=== PATIENT | female | born 1995 | race African-American/Black ===

== ENCOUNTER 2018-07-02 18:42 | Emergency (ER) | payer OTHER ==
[2018-07-02 19:25] VITALS: BP 116/68; PULSE 97; RESP 20; TEMP 98
--- NOTE | 2018-07-02 19:53 | ED ---
ENT HPI - General Chief complaint: ENT Stated complaint: sore throat Source: patient Mode of arrival: ambulatory Limitations: no limitations - Related Data Previous Rx's Medication Instructions Recorded Amoxicillin 500 mg PO Q12HR 10 Days #20 cap 07/02/18 Allergies Allergy/AdvReac Type Severity Reaction Status Date / Time No Known Allergies Allergy Verified 07/02/18 20:03 Review of Systems ROS Statement: Those systems with pertinent positive or pertinent negative responses have been documented in the HPI. ROS Other: All systems not noted in ROS Statement are negative. Past Medical History Past Medical History: No Reported History History of Any Multi-Drug Resistant Organisms: None Reported Past Surgical History: No Surgical Hx Reported Past Psychological History: No Psychological Hx Reported Smoking Status: Current every day smoker Past Alcohol Use History: None Reported Past Drug Use History: None Reported General Exam - General Exam Comments Initial Comments: General: The patient is awake and alert, in no distress, and does not appear acutely ill. Eye: Pupils are equal, round and reactive to light, extra-ocular movements are intact. No nystagmus. There is normal conjunctiva bilaterally. No signs of icterus. Ears, nose, mouth and throat: There are moist mucous membranes and no oral lesions. Neck: The neck is supple, there is no tenderness or JVD. Cardiovascular: There is a regular rate and rhythm. No murmur, rub or gallop is appreciated. Respiratory: Lungs are clear to auscultation, respirations are non-labored, breath sounds are equal. No wheezes, stridor, rales, or rhonchi. Gastrointestinal: [Soft, non-distended, non-tender abdomen without masses or organomegaly noted. There is no rebound or guarding present. No CVA tenderness. Bowel sounds are unremarkable.] Musculoskeletal: Normal ROM, no tenderness. Strength 5/5. Sensation intact. Pulses equal bilaterally 2+. Neurological: A&O x 3. CN II-XII intact, There are no obvious motor or sensory deficits. Coordination appears grossly intact. Speech is normal. Skin: Skin is warm and dry and no rashes or lesions are noted. Psychiatric: Cooperative, appropriate mood & affect, normal judgment. Limitations: no limitations Course Vital Signs 07/02/18 19:20 Temperature 98.0 F Pulse Rate 97 Respiratory 20 Rate Blood Pressure 116/68 O2 Sat by Pulse 100 Oximetry Medical Decision Making - Lab Data Lab Results 07/02/18 Range/Units 19:25 Group A Strep Rapid Positive A (Negative) Disposition Clinical Impression: Strep pharyngitis Disposition: HOME SELF-CARE Condition: Good Instructions: Strep Throat (ED) Additional Instructions: Please use medication as discussed. Please follow-up with family doctor in the next 2 days. Please return to emergency room if the symptoms increase or worsen or for any other concerns. Prescriptions: Amoxicillin 500 mg PO Q12HR 10 Days #20 cap Is patient prescribed a controlled substance at d/c from ED?: No Referrals: None,Stated [Primary Care Provider] - 1-2 days [facility] [NON-STAFF] - 1-2 days Time of Disposition: 19:52
== END 2018-07-02 20:14 | disposition home or self-care (01) ==
LOC: EC 18:42
DX: J02.0 Streptococcal pharyngitis (principal); F17.200 Nicotine dependence, unspecified, uncomplicated
CPT/HCPCS: 87430; 99283

== ENCOUNTER 2019-09-23 12:31 | Emergency (ER) | payer OTHER ==
[2019-09-23 13:18] VITALS: BP 93/59; PULSE 96; RESP 18; TEMP 98.8
--- NOTE | 2019-09-23 13:46 | ED ---
General Adult HPI - General Chief complaint: Skin/Abscess/Foreign Body Stated complaint: bug bites Time Seen by Provider: 09/23/19 13:18 Source: patient, RN notes reviewed Mode of arrival: ambulatory Limitations: no limitations - History of Present Illness Initial comments: 24-year-old female presents to the emergency department for a chief complaint of rash. She states she had a family member that stayed with them and had ringworm. Mother states that for the past couple weeks she has had spots on her legs and back. States her legs disappeared but she still has about 2 spots on her back. States she is concerned this is ringworm.Patient has no other complaints at this time including shortness of breath, chest pain, abdominal pain, nausea or vomiting, headache, or visual changes. - Related Data Previous Rx's Medication Instructions Recorded Amoxicillin 500 mg PO Q12HR 10 Days #20 cap 07/02/18 Clotrimazole Cream [Lotrimin Cream] 1 applic TOPICAL BID #20 gm 09/23/19 Penicillin V Potassium [Pen Vee K] 500 mg PO Q6H 10 Days #40 tablet 09/23/19 Allergies Allergy/AdvReac Type Severity Reaction Status Date / Time No Known Allergies Allergy Verified 09/23/19 13:19 Review of Systems ROS Statement: Those systems with pertinent positive or pertinent negative responses have been documented in the HPI. ROS Other: All systems not noted in ROS Statement are negative. Past Medical History Past Medical History: No Reported History History of Any Multi-Drug Resistant Organisms: None Reported Past Surgical History: No Surgical Hx Reported Past Psychological History: No Psychological Hx Reported Smoking Status: Current every day smoker Past Alcohol Use History: None Reported Past Drug Use History: None Reported General Exam Limitations: no limitations General appearance: alert, in no apparent distress Head exam: Present: atraumatic, normocephalic, normal inspection Eye exam: Present: normal appearance, PERRL, EOMI. Absent: scleral icterus, conjunctival injection, periorbital swelling ENT exam: Present: normal exam, mucous membranes moist Neck exam: Present: normal inspection. Absent: tenderness, meningismus, lymphadenopathy Respiratory exam: Present: normal lung sounds bilaterally. Absent: respiratory distress, wheezes, rales, rhonchi, stridor Cardiovascular Exam: Present: regular rate, normal rhythm, normal heart sounds. Absent: systolic murmur, diastolic murmur, rubs, gallop, clicks Skin exam: Present: rash (2 small Dark erythematous lesion noted to the back about 2 cm x 2 cm in size. Mild central clearing noted.) Course Vital Signs 09/23/19 13:14 Temperature 98.8 F Pulse Rate 96 Respiratory 18 Rate Blood Pressure 93/59 O2 Sat by Pulse 100 Oximetry Medical Decision Making - Medical Decision Making Vitals are stable. Physical exam as documented. Likely ringworm rash. I recommended starting a clotrimazole cream. Mother is aware that she needs to make sure that this is resolving and is to follow up with primary care to ensure resolution. She'll follow-up with the next few days. She'll return here if any worsening symptoms. Patient also requesting antibiotic for dental pain. Patient does have a fractured right posterior molar. There is no dental abscess. No sublingual edema. No trismus or swelling of the face. Patient will be treated with penicillin and given community [facility] referral. Disposition Clinical Impression: Rash, Dental infection Disposition: HOME SELF-CARE Condition: Good Instructions (If sedation given, give patient instructions): Tinea Corporis ( ED) Additional Instructions: Please apply cream to affected area twice daily for 2-4 weeks. Follow-up with primary care in 1-2 days. Follow-up to ensure resolution as well. Take antibiotic as directed for dental pain. Follow-up with dentist. Return to the emergency Department if patient develops any worsening symptoms. [facility] Address: [address] [place] [address] Prescriptions: Clotrimazole Cream [Lotrimin Cream] 1 applic TOPICAL BID #20 gm Penicillin V Potassium [Pen Vee K] 500 mg PO Q6H 10 Days #40 tablet Is patient prescribed a controlled substance at d/c from ED?: No Referrals: Kisha Armendariz MD [STAFF PHYSICIAN] - 1-2 days Time of Disposition: 13:41
== END 2019-09-23 14:23 | disposition home or self-care (01) ==
LOC: EC 12:31
DX: R21 Rash and other nonspecific skin eruption (principal); K04.7 Periapical abscess without sinus; S02.5XXA Fracture of tooth (traumatic), initial encounter for closed fracture; F17.200 Nicotine dependence, unspecified, uncomplicated
CPT/HCPCS: 99282

== ENCOUNTER → 2020-10-01 | Outpatient (CLI) | payer OTHER ==
--- NOTE | 2020-10-02 09:04 | US ---
EXAMINATION TYPE: US transvaginal DATE OF EXAM: 10/01/2020 COMPARISON: NONE CLINICAL HISTORY: 25-year-old female O03.9 SPONTANEOUS AB. Patient states she had a miscarriage the b eginning of July 2020 and has been bleeding since then, HCG is 14, 3, para 2, miscarriage TECHNIQUE: Transvaginal exam only per physician order. Date of LMP: 2019 FINDINGS: EXAM MEASUREMENTS: Uterus: 9.4 x 4.9 x 4.5 cm Endometrial Stripe: 2.0 cm Right Ovary: 4.3 x 1.7 x 1.9 cm Left Ovary: 3.8 x 1.9 x 2.1 cm 1. Uterus: anteverted 2. Endometrium: thickened, vascular, possible retained products of conception 3. Right Ovary: multiple follicles 4. Left Ovary: multiple follicles 5. Bilateral Adnexa: wnl 6. Posterior cul-de-sac: wnl IMPRESSION: Thickened, heterogeneous, and vascular endometrium. Correlate with beta-hCG for potential retained pr oducts of conception.
== END ==
LOC: RADUSWWP 15:46
PROVIDERS: ATTEND Family Medicine
DX: O03.9 Complete or unspecified spontaneous abortion without complication (principal)
CPT/HCPCS: 76830

== ENCOUNTER 2020-12-16 22:33 | Emergency (ER) | payer OTHER ==
[2020-12-16 22:42] VITALS: BP 132/92; PULSE 77; RESP 18; TEMP 98.2
[2020-12-16] MEDS ORDERED: AMOXIC-POT CLAV 875MG STARTER PACK 2 TAB BTL PO STA (23:04)
[2020-12-16] MEDS ORDERED: KETOROLAC 15 MG/ML 1 ML VIAL IM STA (23:45)
[2020-12-16] MEDS ORDERED: ACET/COD 300 MG/30 MG STARTER PACK 6 TAB BTL PO STA (23:45)
--- NOTE | 2020-12-16 23:47 | ED ---
General Adult HPI - General Chief complaint: Dental/Oral Stated complaint: Dental Pain Time Seen by Provider: 12/16/20 22:45 Source: patient Mode of arrival: ambulatory Limitations: no limitations - History of Present Illness Initial comments: 25-year-old female patient presents to the emergency department today for evaluation of left upper dental pain. Patient states his been going on for the last few days. States she does have an appointment to have the tooth removed on December 31. States she's been taking ibuprofen at home which is not helping. S tates she has had some intermittent facial swelling. Denies fever or chills. Denies trismus or difficulty swallowing. Denies nausea or vomiting. She was not started on any antibiotics for this. States she is unsure if she may be . Denies any other concerns. - Related Data Previous Rx's Medication Instructions Recorded Amoxicillin 500 mg PO Q12HR 10 Days #20 cap 07/02/18 Clotrimazole Cream [Lotrimin Cream] 1 applic TOPICAL BID #20 gm 09/23/19 Penicillin V Potassium [Pen Vee K] 500 mg PO Q6H 10 Days #40 tablet 09/23/19 Amoxic-Pot Clav 875-125Mg 1 tab PO Q12HR #20 tablet 12/16/20 [Augmentin 875-125] Allergies Allergy/AdvReac Type Severity Reaction Status Date / Time No Known Allergies Allergy Verified 12/16/20 22:42 Review of Systems ROS Statement: Those systems with pertinent positive or pertinent negative responses have been documented in the HPI. ROS Other: All systems not noted in ROS Statement are negative. Past Medical History Past Medical History: No Reported History History of Any Multi-Drug Resistant Organisms: None Reported Past Surgical History: No Surgical Hx Reported Past Psychological History: No Psychological Hx Reported Smoking Status: Former smoker Past Alcohol Use History: None Reported Past Drug Use History: None Reported General Exam Limitations: no limitations General appearance: alert, in no apparent distress ENT exam: Present: mucous membranes moist, other (There is broken tooth number Geno. Mild surrounding gingival erythema and hyperplasia. No evidence of drainable abscess.). Absent: normal exam Respiratory exam: Present: normal lung sounds bilaterally. Absent: respiratory distress, wheezes, rales, rhonchi, stridor Cardiovascular Exam: Present: regular rate, normal rhythm, normal heart sounds. Absent: systolic murmur, diastolic murmur, rubs, gallop, clicks Neurological exam: Present: alert, oriented X3, CN II-XII intact Psychiatric exam: Present: normal affect, normal mood Skin exam: Present: warm, dry, intact, normal color. Absent: rash Course Vital Signs 12/16/20 22:36 Temperature 98.2 F Pulse Rate 77 Respiratory 18 Rate Blood Pressure 132/92 O2 Sat by Pulse 100 Oximetry Medical Decision Making - Medical Decision Making 25-year-old female patient presented to the emergency department today for evaluation of left upper dental pain. Reports intermittent facial swelling. No fever. test came back negative. We'll treat with Augmentin and give pain medications. She is instructed to call the dentist to see if she can have a sooner appointment. Return parameters were discussed in detail. She verbalizes understanding and agrees with this plan. My attending is Dr. Olivera. - Lab Data Lab Results 12/16/20 Range/Units 23:12 Urine HCG, Qual Not Detected (Not Detectd) Disposition Clinical Impression: Pain, dental Disposition: HOME SELF-CARE Condition: Good Instructions (If sedation given, give patient instructions): Dental Abscess (ED), Toothache (ED) Additional Instructions: Complete antibiotic prescription in full. Use medication sparingly for severe pain. Follow up with dentistry as soon as possible. Follow-up with your primary care physician for recheck in 1-2 days. Return for any new, worsening, or concerning symptoms. Prescriptions: Amoxic-Pot Clav 875-125Mg [Augmentin 875-125] 1 tab PO Q12HR #20 tablet Is patient prescribed a controlled substance at d/c from ED?: No Referrals: Jonh Castaneda [Primary Care Provider] - 1-2 days Time of Disposition: 23:46
== END 2020-12-17 00:17 | disposition home or self-care (01) ==
LOC: EC 22:33
DX: S02.5XXA Fracture of tooth (traumatic), initial encounter for closed fracture (principal); Z87.891 Personal history of nicotine dependence; X58.XXXA Exposure to other specified factors, initial encounter
CPT/HCPCS: 81025; 99283; 96372; J1885

== ENCOUNTER 2021-06-24 02:17 | Emergency (ER) | payer OTHER ==
[2021-06-24 02:21] VITALS: BP 114/74; PULSE 97; RESP 22; TEMP 99.3
[2021-06-24] MEDS ORDERED: PENICILLIN VK 500MG STARTER 4 TAB BTL PO STA (02:40)
[2021-06-24] MEDS ORDERED: IBUPROFEN 600 MG TAB PO STA (02:40)
--- NOTE | 2021-06-24 02:44 | ED ---
ENT HPI - General Chief complaint: ENT Stated complaint: Swollen throat/neck pain Time Seen by Provider: 06/24/21 02:28 Source: patient, RN notes reviewed Mode of arrival: ambulatory Limitations: no limitations - History of Present Illness Initial comments: Patient is a 25-year-old female presenting to the emergency Department with complaints of 2 days of a sore throat. Patient states she feels like her tonsils are swollen and she is having some soreness in the outside of her neck as well. She denies any fevers or chills, no cough or respiratory complaints. She denies any dental pain. She has no further complaints at this time. - Related Data Previous Rx's Medication Instructions Recorded Amoxicillin 500 mg PO Q12HR 10 Days #20 cap 07/02/18 Clotrimazole Cream [Lotrimin Cream] 1 applic TOPICAL BID #20 gm 09/23/19 Penicillin V Potassium [Pen Vee K] 500 mg PO Q6H 10 Days #40 tablet 09/23/19 Amoxic-Pot Clav 875-125Mg 1 tab PO Q12HR #20 tablet 12/16/20 [Augmentin 875-125] Penicillin V Potassium [Pen Vee K] 500 mg PO BID 7 Days #14 tablet 06/24/21 Allergies Allergy/AdvReac Type Severity Reaction Status Date / Time No Known Allergies Allergy Verified 06/24/21 02:21 Review of Systems ROS Statement: Those systems with pertinent positive or pertinent negative responses have been documented in the HPI. ROS Other: All systems not noted in ROS Statement are negative. Past Medical History Past Medical History: No Reported History History of Any Multi-Drug Resistant Organisms: None Reported Past Surgical History: No Surgical Hx Reported Past Psychological History: No Psychological Hx Reported Smoking Status: Current every day smoker Past Alcohol Use History: None Reported Past Drug Use History: None Reported General Exam - General Exam Comments Initial Comments: GENERAL: Patient is well-developed and well-nourished. Patient is nontoxic and in no acute distress. HEAD: Atraumatic, normocephalic. EYES: Pupils equal round and reactive to light, extraocular movements intact, sclera anicteric, conjunctiva are normal. Eyelids were unremarkable. ENT: TMs normal, nares patent, tonsils are enlarged bilaterally, erythematous, small exudate present. Moist mucous membranes. NECK: Normal range of motion, supple without lymphadenopathy or JVD. LUNGS: Unlabored respirations. Breath sounds clear to auscultation bilaterally and equal. No wheezes rales or rhonchi. HEART: Regular rate and rhythm without murmurs, rubs or gallops. ABDOMEN: Soft, nontender, normoactive bowel sounds. No guarding, no rebound. No masses appreciated. MUSCULOSKELETAL: Normal extremities with adequate strength and normal range of motion, no pitting or edema. No clubbing or cyanosis. NEUROLOGICAL: Patient is alert and oriented x 3. SKIN: Warm, Dry, normal turgor, no rashes or lesions noted. Limitations: no limitations Course Vital Signs 06/24/21 02:18 Temperature 99.3 F Pulse Rate 97 Respiratory 22 Rate Blood Pressure 114/74 O2 Sat by Pulse 99 Oximetry Medical Decision Making - Medical Decision Making Patient is a 25-year-old female here with a sore throat 2 days. Her exam is consistent with tonsillitis. I will give her some ibuprofen here and start her on penicillin. Started pack given here in the ER. Patient will continue with Tylenol or Motrin for pain control and swelling. She can follow-up with her primary care. Return parameters were discussed with her and she verbalized understanding. Disposition Clinical Impression: Tonsillitis, Sore throat Disposition: HOME SELF-CARE Condition: Stable Instructions (If sedation given, give patient instructions): Tonsillitis (ED) Additional Instructions: Please return to the Emergency Department if symptoms worsen or any other concerns. Take antibiotic as prescribed, finish entire course. Follow-up with your primary care as needed. Prescriptions: Penicillin V Potassium [Pen Vee K] 500 mg PO BID 7 Days #14 tablet Is patient prescribed a controlled substance at d/c from ED?: No Referrals: Jonh Castaneda [Primary Care Provider] - 1-2 days Time of Disposition: 02:43
== END 2021-06-24 02:58 | disposition home or self-care (01) ==
LOC: EC 02:17
DX: J03.90 Acute tonsillitis, unspecified (principal); F17.200 Nicotine dependence, unspecified, uncomplicated
CPT/HCPCS: 99283